=== PATIENT | female | born 1985 | race American Indian/Alaskan Native ===

== ENCOUNTER 2021-05-21 18:33 | Emergency (ER) | payer BC ==
[2021-05-21 18:55] VITALS: BP 115/75
[2021-05-21 20:16] LABS: Bacteria,Urine 3+ /HPF (Negative); Bilirubin,Urine NEG (Negative); Blood,Urine NEG (Negative); Color,Urine Yellow (Yellow); Mucus,Urine FEW /HPF; Protein,Urine <15 mg/dL mg/dL (Negative)
[2021-05-21 20:43] LABS: HCG Qualitative,Urine Negative (Negative)
--- NOTE | 2021-05-21 22:08 | Emergency Department Report ---
ED Dysuria HPI - HPI Duration: 3 Days Location of Discomfort: Flank Severity: Mild Symptoms: Dysuria: No, Frequency: Yes, Suprapubic Pain: No, Flank Pain: Yes, Fever: No, Hematuria: No, Abdominal Pain: No, Previous UTI's: No Other History: This 35-year-old female presented with right-sided flank pain for the past 2 to 3 days. Patient denies fever/chills/nausea vomiting/diarrhea/abdominal pain/dysuria nor frequency. Patient states that she is very worried so she wanted to come to the ED to be evaluated. Patient also notes that she is on her menstrual cycle which began yesterday. <LAURA CASTAÑEDA - Last Filed: 06/20/21 20:47> <NORBERTO DONIS - Last Filed: 06/21/21 11:40> - HPI Chief Complaint: Abdominal Pain Stated Complaint: PAINS AND BLEEDING Time Seen by Provider: 05/21/21 20:51 ED Review of Systems ROS: Stated complaint: PAINS AND BLEEDING Other details as noted in HPI Comment: All other systems reviewed and negative <LAURA CASTAÑEDA - Last Filed: 06/20/21 20:47> ROS: Stated complaint: PAINS AND BLEEDING Other details as noted in HPI <NORBERTO DONIS - Last Filed: 06/21/21 11:40> ED Past Medical Hx - Past Medical History Additional medical history: ovarian cyst - Surgical History Past Surgical History?: Yes Hx Appendectomy: Yes Additional Surgical History: laproscopy <LAURA CASTAÑEDA - Last Filed: 06/20/21 20:47> <NORBERTO DONIS - Last Filed: 06/21/21 11:40> - Medications Home Medications: Home Medications Medication Instructions Recorded Confirmed Last Taken Type Nitrofurantoin [place]/M-Cryst 100 mg PO Q12HR #14 capsule 05/21/21 Unknown Rx [Macrobid CAP] Dysuria Exam - Exam General: Vital signs noted. No distress. Alert and acting appropriately. Exam: Yes Moist Mucous Membranes, No CVA Tenderness, No Abdominal Tenderness, No Rigidity or Guarding Labs: Lab Results 05/21/21 05/21/21 Range/Units 19:55 19:55 Urine Color Yellow (Yellow) Urine Turbidity Clear (Clear) Urine pH 7.0 (5.0-7.0) Ur Specific [place] 1.027 (1.003-1.030) Urine Protein <15 mg/dl (Negative) mg/dL Urine Glucose (UA) Neg (Negative) mg/dL Urine Ketones Neg (Negative) mg/dL Urine Blood Neg (Negative) Urine Nitrite Neg (Negative) Urine Bilirubin Neg (Negative) Urine Urobilinogen 2.0 (<2.0) mg/dL Ur Leukocyte Esterase Neg (Negative) Urine WBC (Auto) 2.0 (0.0-6.0) /HPF Urine RBC (Auto) 4.0 (0.0-6.0) /HPF U Epithel Cells (Auto) 5.0 (0-13.0) /HPF Urine Bacteria (Auto) 3+ (Negative) /HPF Urine Mucus Few /HPF Urine HCG, Qual Negative (Negative) <LAURA CASTAÑEDA - Last Filed: 06/20/21 20:47> - Exam General: Vital signs noted. No distress. Alert and acting appropriately. Labs: Lab Results 05/21/21 05/21/21 Range/Units 19:55 19:55 Urine Color Yellow (Yellow) Urine Turbidity Clear (Clear) Urine pH 7.0 (5.0-7.0) Ur Specific [place] 1.027 (1.003-1.030) Urine Protein <15 mg/dl (Negative) mg/dL Urine Glucose (UA) Neg (Negative) mg/dL Urine Ketones Neg (Negative) mg/dL Urine Blood Neg (Negative) Urine Nitrite Neg (Negative) Urine Bilirubin Neg (Negative) Urine Urobilinogen 2.0 (<2.0) mg/dL Ur Leukocyte Esterase Neg (Negative) Urine WBC (Auto) 2.0 (0.0-6.0) /HPF Urine RBC (Auto) 4.0 (0.0-6.0) /HPF U Epithel Cells (Auto) 5.0 (0-13.0) /HPF Urine Bacteria (Auto) 3+ (Negative) /HPF Urine Mucus Few /HPF Urine HCG, Qual Negative (Negative) <NORBERTO DONIS - Last Filed: 06/21/21 11:40> ED Course Vital Signs 05/21/21 18:54 Temperature 98.5 F Pulse Rate 69 Respiratory 18 Rate Blood Pressure 115/75 O2 Sat by Pulse 100 Oximetry <LAURA CASTAÑEDA - Last Filed: 06/20/21 20:47> Vital Signs 05/21/21 18:54 Temperature 98.5 F Pulse Rate 69 Respiratory 18 Rate Blood Pressure 115/75 O2 Sat by Pulse 100 Oximetry <NORBERTO DONIS - Last Filed: 06/21/21 11:40> ED Medical Decision Making - Medical Decision Making 35-year-old male presents with a bacterial urinary tract infection ED course: Urinalysis is positive for bacteria and normal otherwise, all other labs within normal limits. I discussed this findings with the patient. I discussed the patient to make sure she completes all of the antibiotic dose even until symptoms resolve. Patient is in no acute distress, patient also has on instructions were given to him. Patient had no acute or respiratory distress throughout ED stay. <LAURA CASTAÑEDA - Last Filed: 06/20/21 20:47> - Lab Data Vital Signs 05/21/21 18:54 Temperature 98.5 F Pulse Rate 69 Respiratory 18 Rate Blood Pressure 115/75 O2 Sat by Pulse 100 Oximetry Lab Results 05/21/21 05/21/21 Range/Units 19:55 19:55 Urine Color Yellow (Yellow) Urine Turbidity Clear (Clear) Urine pH 7.0 (5.0-7.0) Ur Specific [place] 1.027 (1.003-1.030) Urine Protein <15 mg/dl (Negative) mg/dL Urine Glucose (UA) Neg (Negative) mg/dL Urine Ketones Neg (Negative) mg/dL Urine Blood Neg (Negative) Urine Nitrite Neg (Negative) Urine Bilirubin Neg (Negative) Urine Urobilinogen 2.0 (<2.0) mg/dL Ur Leukocyte Esterase Neg (Negative) Urine WBC (Auto) 2.0 (0.0-6.0) /HPF Urine RBC (Auto) 4.0 (0.0-6.0) /HPF U Epithel Cells (Auto) 5.0 (0-13.0) /HPF Urine Bacteria (Auto) 3+ (Negative) /HPF Urine Mucus Few /HPF Urine HCG, Qual Negative (Negative) <NORBERTO DONIS - Last Filed: 06/21/21 11:40> Critical care attestation.: If time is entered above; I have spent that time in minutes in the direct care of this critically ill patient, excluding procedure time. <LAURA CASTAÑEDA - Last Filed: 06/20/21 20:47> Critical care attestation.: If time is entered above; I have spent that time in minutes in the direct care of this critically ill patient, excluding procedure time. <NORBERTO DONIS - Last Filed: 06/21/21 11:40> ED Disposition Is pt being admited?: No Does the pt Need Aspirin: No Time of Disposition: 22:23 <LAURA CASTAÑEDA - Last Filed: 06/20/21 20:47> Is pt being admited?: No Does the pt Need Aspirin: No <NORBERTO DONIS - Last Filed: 06/21/21 11:40> Clinical Impression: UTI (urinary tract infection), Dysmenorrhea Disposition: 01 HOME / SELF CARE / HOMELESS Condition: Stable Instructions: Antibiotic Medicine, Adult, [id number], Urinary Tract Infection , Adult, Abdominal Pain (ED) Additional Instructions: Make sure to follow up with the primary care physician as discussed. Take all your medications as you've been prescribed. If you have any worsening symptoms or develop new symptoms please return to ED immediately. Prescriptions: Nitrofurantoin [place]/M-Cryst [Macrobid CAP] 100 mg PO Q12HR #14 capsule Referrals: PRIMARY CAREMD [Primary Care Provider] - 3-5 Days STEFFI BECKFORD MD [Referring] - 3-5 Days [facility] [Provider Group] - 3-5 Days [facility] [Outside] - 3-5 Days [facility] [Outside] - 3-5 Days Forms: Work/School Release Form(ED)
== END 2021-05-21 22:45 | disposition home or self-care (01) ==
LOC: ED 18:33
DX: N39.0 Urinary tract infection, site not specified (principal); Z90.49 Acquired absence of other specified parts of digestive tract; Z98.890 Other specified postprocedural states; Z79.899 Other long term (current) drug therapy; Z88.0 Allergy status to penicillin
CPT/HCPCS: 81001; 81025